=== PATIENT | female | born 2000 | race Two or more races ===

== ENCOUNTER 2024-12-27 10:34 | Emergency (ER) | payer BC ==
[~2024-12-27] VITALS: Ht 167.6 cm; Wt 70.3 kg
[2024-12-27] MEDS ORDERED: CEFTRIAXONE SODIUM 1,000 MG VIAL IM ONE (13:45)
[2024-12-27] MEDS ORDERED: KETOROLAC TROMETHAMINE 30 MG VIAL IM ONE (13:45)
[2024-12-27] MEDS ORDERED: AMOX-CLAV 875-1 EAC1 PO (13:55)
[2024-12-27] MEDS ORDERED: OFLOXACIN5 M1 OT (13:55)
== END 2024-12-27 14:36 ==
LOC: ER 10:34
DX: H66.91 Otitis media, unspecified, right ear (principal)